=== PATIENT | male | born 1970 | race Caucasian/White ===

== ENCOUNTER → 2024-04-23 | Outpatient (CLI) | payer OTHER ==
[~2024-04-23] MED LIST: Aspir 8181 MG PO; DILTIAZEM 24HR180 M3 PO; Flecainide Acet50 MG PO; METO25ER PO; TAMS.4ER PO; XARELTO20 MG PO
[2024-04-23 14:49] LABS: BASOPHILS ABSOLUTE AUTO 0.03 K/mm3 (0.00-0.23); BASOPHILS PERCENT AUTO 1 % (0-2); EOSINOPHILS ABSOLUTE AUTO 0.14 K/mm3 (0.00-0.68); EOSINOPHILS PERCENT AUTO 2 % (0-6); Hematocrit 42.9 % (37.0-53.0); Hemoglobin 14.3 g/dL (13.5-17.5); IMMATURE GRAN ABSOLUTE AUTO 0.02 K/mm3 (0.00-0.10); IMMATURE GRAN PERCENT AUTO 0 % (0-1); LYMPHOCYTES ABSOLUTE AUTO 1.78 K/mm3 (0.84-5.20); LYMPHOCYTES PERCENT AUTO 28 % (21-46); MONOCYTES PERCENT AUTO 10 % (4-13); Mean Corpuscular HGB 29.2 pg (26.0-34.0); Mean Corpuscular HGB Conc 33.3 g/dL (31.5-36.5); Mean Corpuscular Volume 88 fL (80-100); NEUTROPHILS ABSOLUTE AUTO 3.74 K/mm3 (1.96-9.15); NEUTROPHILS PERCENT AUTO 59 % (41-73); Platelet Count 224 K/mm3 (150-400); RDW Coefficient Variation 13.8 % (11.7-14.2); RDW Standard Deviation 44.6 fL (35.1-46.3); Red Blood Cell Count 4.89 M/mm3 (4.30-5.90); White Blood Cell Count 6.31 K/mm3 (4.00-11.30)
[2024-04-23 15:01] LABS: Albumin, Blood 4.1 g/dL (3.4-5.0); Albumin/Globulin Ratio 1.2 (0.8-1.8); Bilirubin, Total 0.8 mg/dL (0.1-1.0); Calcium, Blood 8.8 mg/dL (8.5-10.1); Creatinine, Blood 0.63 mg/dL (0.60-1.20); Globulin, Blood 3.5 g/dL (2.2-4.0); Total Protein, Blood 7.6 g/dL (6.4-8.2); Uric Acid, Blood 7.2 mg/dL (3.5-7.2)
== END | disposition home or self-care (01) ==
LOC: LAB SHORT 10:50
PROVIDERS: Nurse Practitioner Family
DX: M79.672 Pain in left foot (principal)
CPT/HCPCS: 80053; 83036; 84550; 85025

== ENCOUNTER 2024-05-28 15:11 | Emergency (ER) | payer OTHER ==
[~2024-05-28] VITALS: Ht 182.9 cm; Wt 113.4 kg
[2024-05-28 15:51] LABS: BASOPHILS ABSOLUTE AUTO 0.02 K/mm3 (0.00-0.23); BASOPHILS PERCENT AUTO 0 % (0-2); EOSINOPHILS ABSOLUTE AUTO 0.09 K/mm3 (0.00-0.68); EOSINOPHILS PERCENT AUTO 1 % (0-6); Hematocrit 42.2 % (37.0-53.0); Hemoglobin 14.3 g/dL (13.5-17.5); IMMATURE GRAN ABSOLUTE AUTO 0.02 K/mm3 (0.00-0.10); IMMATURE GRAN PERCENT AUTO 0 % (0-1); LYMPHOCYTES ABSOLUTE AUTO 1.63 K/mm3 (0.84-5.20); LYMPHOCYTES PERCENT AUTO 21 % (21-46); MONOCYTES ABSOLUTE AUTO 0.74 K/mm3 (0.16-1.47); MONOCYTES PERCENT AUTO 10 % (4-13); Mean Corpuscular HGB Conc 33.9 g/dL (31.5-36.5); Mean Corpuscular Volume 89 fL (80-100); Mean Platelet Volume 9.7 fL (9.1-12.4); NEUTROPHILS ABSOLUTE AUTO 5.11 K/mm3 (1.96-9.15); NEUTROPHILS PERCENT AUTO 67 % (41-73); Platelet Count 209 K/mm3 (150-400); RDW Coefficient Variation 13.3 % (11.7-14.2); Red Blood Cell Count 4.77 M/mm3 (4.30-5.90); White Blood Cell Count 7.61 K/mm3 (4.00-11.30)
[2024-05-28 16:15] LABS: Albumin, Blood 4.1 g/dL (3.4-5.0); Albumin/Globulin Ratio 1.2 (0.8-1.8); Bilirubin, Total 1.2 mg/dL (0.1-1.0); Bun/Creatinine Ratio 10.3 (12.0-20.0); Calcium, Blood 9.1 mg/dL (8.5-10.1); Creatinine, Blood 0.78 mg/dL (0.60-1.20); Globulin, Blood 3.5 g/dL (2.2-4.0); Potassium, Blood 3.8 mmol/L (3.5-5.5); Total Protein, Blood 7.6 g/dL (6.4-8.2)
[2024-05-28 17:18] VITALS: BP 170/109
== END 2024-05-28 17:17 | disposition home or self-care (01) ==
LOC: ER 15:11
PROVIDERS: Emergency Medicine
DX: I50.9 Heart failure, unspecified (principal); Z79.899 Other long term (current) drug therapy; Z79.01 Long term (current) use of anticoagulants
CPT/HCPCS: 71046; 80053; 83880; 84484; 85025; 85379; 93005; 93010; 99285-25

== ENCOUNTER 2024-07-09 09:49 | Day surgery (SDC) | payer OTHER ==
[~2024-07-09] VITALS: Ht 182.9 cm; Wt 116.1 kg
[~2024-07-09 09:49] MED LIST changes: +Lactated Ringer's 1,000 ML IV ONE
[2024-07-09] MEDS ORDERED: DILT180 PO (10:32)
[2024-07-09] MEDS ORDERED: METFORMIN HCL500 M3 PO (10:33)
[2024-07-09] MEDS ORDERED: OMEP20ER PO (10:33)
[2024-07-09] MEDS ORDERED: PROAIR DIGIHAL90 MCG IH (10:34)
[2024-07-09] MEDS ORDERED: Lactated Ringer's 1,000 ML IV ONE (10:51)
[2024-07-09] MEDS ORDERED: CeFAZolin Sodium 2,000 MG VIAL ONE (10:59)
[2024-07-09] MEDS ORDERED: Bupivacaine 0.5% W/EPI 1:200000 SDV 30 ML Vial ONE (11:00)
[2024-07-09] MEDS ORDERED: Lidocaine HCl 2% 10 ML SDA ONE (11:00)
[2024-07-09] MEDS ORDERED: propofoL 20 ML IV ONE (11:28)
[2024-07-09] MEDS ORDERED: FentaNYL Citrate 50 MCG/ML 2 ML Injection ONE (11:28)
[2024-07-09] MEDS ORDERED: Citric Acid/Sodium Citrate 30 ML BTL ONE (11:35)
[2024-07-09] MEDS ORDERED: Sugammadex Sodium 200 MG/2ML SDV (100 MG/ML) ONE (12:09)
[2024-07-09] MEDS ORDERED: Metoclopramide HCl 5MG / ML 2ML Vial ONE (12:15)
[2024-07-09] MEDS ORDERED: Ondansetron HCl 2 MG / ML 2ML Vial ONE (12:15)
[2024-07-09 12:44] VITALS: BP 159/101
== END 2024-07-09 13:38 | disposition home or self-care (01) ==
LOC: ORSCSDS 09:49
PROVIDERS: Podiatrist Foot & Ankle Surgery
PROC: 0QBP0ZZ Excision of Left Metatarsal, Open Approach (ICD-10-PCS; principal; 2024-07-09 12:00)
PROC: 0QBR0ZZ Excision of Left Toe Phalanx, Open Approach (ICD-10-PCS; principal; 2024-07-09 12:00)
PROC: 0QSP04Z Reposition Left Metatarsal with Internal Fixation Device, Open Approach (ICD-10-PCS; principal; 2024-07-09 12:00)
DX: M79.672 Pain in left foot (principal); M20.5X2 Other deformities of toe(s) (acquired), left foot; E11.9 Type 2 diabetes mellitus without complications; I10 Essential (primary) hypertension; I48.91 Unspecified atrial fibrillation; K21.9 Gastro-esophageal reflux disease without esophagitis; Z79.84 Long term (current) use of oral hypoglycemic drugs; Z79.899 Other long term (current) drug therapy
CPT/HCPCS: 82947; A9270; J0690; J2003; J2405; J2704; J2765; J3010; J7120

== ENCOUNTER → 2024-11-19 | Outpatient (CLI) | payer SELFPAY ==
[~2024-11-19] MED LIST changes: +DILT180 PO; -Lactated Ringer's 1,000 ML IV ONE; +METFORMIN HCL500 M3 PO; +OMEP20ER PO; +PROAIR DIGIHAL90 MCG IH
== END ==
LOC: LAB 15:26 → LAB SHORT 15:26
DX: J02.9 Acute pharyngitis, unspecified (principal)
CPT/HCPCS: 87081